=== PATIENT | female | born 1990 | race African-American/Black ===

== ENCOUNTER 2021-04-27 14:47 | Outpatient (REF) | payer OTHER, SELFPAY ==
[2021-04-27 15:12] LABS: Binax Internal Control QC Valid; Binax Now Covid-19 Ag Negative (Negative)
== END 2021-04-27 14:48 | disposition home or self-care (01) ==
LOC: HO.HMGCLDS 14:47
PROVIDERS: Visit Provider Internal Medicine
DX: J06.9 Acute upper respiratory infection, unspecified (principal)
CPT/HCPCS: 36415